=== PATIENT | male | born 1945 | race Caucasian/White ===

== ENCOUNTER 2025-03-09 13:53 | Emergency (ER) | payer OTHER, SELFPAY ==
[2025-03-09] VITALS (7 sets, daily range): BP systolic 48–130; BP diastolic 34–53
--- NOTE | 2025-03-09 14:10 | ED.GENMED ---
History of Present Illness
General
Chief Complaint: CODE
Source: ambulance crew
Exam Limitations: clinical condition
Time Seen by Provider: 03/09/25 13:59
History of Present Illness
History of Present Illness:
79-year-old male witnessed cardiac arrest at a nursing facility. CPR was done immediately. No pulse on medic arrival. They were doing CPR for over an hour with 5 rounds of epi. Code was called actually at the facility. However they noted he
appeared to have some agonal breathing and elected to restart CPR and ACLS. Patient was given a total of 7 epis. Eventually had a pulse 10 minutes prior to ER arrival. This was an hour and 20 minutes after starting the code. No spontaneous
neurologic function. Complicated medical history
Past History
Past History
ED Past Medical History: Other (Ascites/cirrhosis. Prostate CA.)
Phy Exam
Physical Exam
Physical Exam:
CODE EXAM:
VITAL SIGNS: Palpable pulse. Intubated.
GENERAL EXAM: Reasonable color
EYES: Pupils fixed. Small. No corneal reflexes
ENT: Patient intubated
NECK: No venous distention
RESPIRATORY: Equal breath sounds
CARDIAC: Distant but equal cardiac sounds. Abrasions on the chest wall
VASCULAR: Faint femoral pulses
ABDOMEN: Soft no masses. Paracentesis tube in place
GUAIAC: Not done
MUSCULOSKELETAL: Unable to evaluate strength
EXTREMITIES: Chronic edema
SKIN: No rash
PSYCH: Mood, affect unable to evaluate
Course
Orders/Labs/Results
Orders:
Orders
03/09/25 13:59
Cardiac Monitoring- Treatment ONCE
IV Insert/Care/Rem.- Treatment PRN
Pulse Ox/cont/shift [RESP] Urgent
Quantity: 1
03/09/25 14:00
EKG [Electrocardiogram (*1)] Urgent
Reason for Study: Chest Pain
Electrocardiogram (*1) Urgent
Reason for Study: Other
Other Reason for Exam: sepsis
EKG- Treatment ONCE
EKG- Treatment ONCE
Portable Chest Xray [CR Chest Portable - 1 View] Urgent
Comment:
Reason For Exam: tube placement
Reason Study Needs to be Portable: Unable to Transport
03/09/25 14:07
ABG [Arterial Blood Gas] Urgent
%Oxygen/Room Air: vent
03/09/25 14:11
Ventilator Initial Settings [RESP] Stat
Tidal Volume: 450
Rate: 18
FIO2: 100
PEEP: 5
03/09/25 14:14
CT Head W/o Iv Contrast Urgent
Comment:
Reason For Exam: Cardiac arrest/unresponsive
03/09/25 14:18
Complete Blood Count/With Diff Urgent
Comprehensive Metabolic Panel Urgent
PTT Urgent
Prothrombin Time Urgent
Troponin I Urgent
03/09/25 15:10
Morphine Sulfate 4 mg IV NOW STA
Abnormal Lab Results
03/09/25 03/09/25
14:07 14:18
RBC 2.33 L 10^6/uL
(4.70-6.10)
Hgb 7.4 L g/dL
(13.0-18.0)
Hct 23.5 L %
(39.0-52.0)
MCV 100.9 H fL
(80.0-94.0)
MCH 31.8 H pg
(27.0-31.0)
MCHC 31.5 L g/dL
(33.0-37.0)
RDW 19.3 H %
(11.5-14.5)
Plt Count 32 L 10^3/uL
(130-400)
MPV 11.9 H fL
(7.4-10.4)
Abs Immat Gran (auto) 0.3 H 10^3/uL
(0-0.05)
Absolute Neuts (auto) 8.1 H 10^3/uL
(1.4-6.5)
Absolute Lymphs (auto) 1.1 L 10^3/uL
(1.2-3.4)
Immature Gran % 2.6 H %
(0-0.5)
Neutrophils % 80.7 H %
(42.2-75.2)
Lymphocytes % 11.2 L %
(20.5-51.1)
PT 17.9 H Sec
(11.4-14.6)
APTT 61.0 H Sec
(23.4-35.0)
pH 7.10 L*
(7.35-7.45)
pCO2 55 H mmHg
(35-48)
pO2 143 H mmHg
(83-108)
HCO3 17.1 L mmol/L
(21-28)
ABG O2 Sat (Measured) 99.7 H %
(94-98)
Chloride 112 H mmol/L
(98-107)
Carbon Dioxide 18 L mmol/L
(22-30)
BUN 50 H mg/dl
(9-20)
Glucose 167 H mg/dl
(70-99)
Alkaline Phosphatase 186 H U/L
(38-126)
Troponin I 0.704 H* ng/ml
Total Protein 5.1 L g/dl
(6.3-8.2)
Albumin 2.3 L g/dl
(3.5-5.0)
03/09/25 14:18
03/09/25 14:18
Vital Signs
Initial and Last Documented VS:
Initial Vital Signs
Pulse Resp BP Pulse Ox
73 16 130/53 99
03/09/25 13:59 03/09/25 13:59 03/09/25 13:59 03/09/25 13:59
Last Documented Vital Signs
Pulse Resp BP Pulse Ox
75 17 130/53 99
03/09/25 14:02 03/09/25 14:02 03/09/25 13:59 03/09/25 13:59
*Radiology
Radiology exam reviewed: preliminary read by ED provider (ET tube 6 cm above the lou. Bilateral pleural effusions) and radiology read reviewed (No acute findings)
*Pulse Oximetry
Oxygen Mode of Delivery: Ventilator
Patient hypoxic: no (98)
*Nurse Paralegal Interpretation
Rate: normal
Interpretation: normal
Heart Rate: 66
Rhythm: sinus
*Critical Care Note
Total Time (30-74mins, 75-104mins- exclusive of procedures): 80
Update Note
Update Note:
Multiple discussions with family. Patient initially presented in a sinus rhythm and stable blood pressure after multiple multiple doses of epi. However he digressed in CT scan. Became more hypotensive bradycardic and went into cardiac arrest
again. CPR was restarted. I was talking to family at that time. They have elected for no [id number] with family. They are currently in seeing him
1505... Patient blood pressure is lowering again. Still remains with a faint pulse. Agonal type respiratory effort on top of the vent. Remains with no corneal reflexes. Again has had multiple discussions with the family. They do not want any
aggressive therapy and agree with extubation.
1523.... Patient 1523. Asystole. No spontaneous respirations. Family in the room.
Electronic certificate done
ED Attending Note
-
Portions of this chart may have been created with voice recognition software.� Occasional wrong word or��sound alike� substitutions may have occurred due to the inherent limitations of voice recognition software.
Discharge Plan
Departure
Patient Disposition:
Date of Disposition: 03/09/25
Time of Disposition: 15:24
Discharge Problem:
Cardiopulmonary arrest
Prescriptions:
No Action
pantoprazole 40 mg Tablet,Delayed Release (Dr/Ec)
40 mg PO DAILY
fludrocortisone 0.1 mg Tablet
0.1 mg PO DAILY
Referrals:
Vikas Jeffery MD [Family Provider]
Interventions
Interventions:
*Nursing Disposition Last Done: 03/09/25 16:40
Discharge Date and Time
Print Language: JAPANESE
[2025-03-09 14:25] LABS: B.E. -12.0 mmol/L; HCO3 17.1 mmol/L (21-28); O2 Saturation % 99.7 % (94-98); PCO2 55 mmHg (35-48); PO2 143 mmHg (83-108)
[2025-03-09 14:35] LABS: Hematocrit 23.5 % (39.0-52.0); Hemoglobin 7.4 g/dL (13.0-18.0); Mean Corp Hgb Conc. 31.5 g/dL (33.0-37.0); Mean Corpuscular Volume 100.9 fL (80.0-94.0); Nucleated Red Blood Cells % 0.5 % (-); Red Cell Dist. Width 19.3 % (11.5-14.5)
[2025-03-09 14:36] LABS: INR 1.43; PT 17.9 Sec (11.4-14.6)
[2025-03-09 14:38] LABS: APTT 61.0 Sec (23.4-35.0)
[2025-03-09 14:51] LABS: Platelet Count 32 10^3/uL (130-400)
[2025-03-09 14:58] LABS: Troponin I 0.704 ng/ml
[2025-03-09 15:00] LABS: ALT (SGPT) 29 U/L (0-50); AST (SGOT) 49 U/L (17-59); Albumin 2.3 g/dl (3.5-5.0); Alkaline Phosphatase 186 U/L (38-126); Blood Urea Nitrogen 50 mg/dl (9-20); Calcium 9.0 mg/dl (8.4-10.2); Carbon Dioxide 18 mmol/L (22-30); Chloride 112 mmol/L (98-107); Glucose 167 mg/dl (70-99); Potassium 4.5 mmol/L (3.5-5.1); Sodium 136 mmol/L (135-145); Total Protein 5.1 g/dl (6.3-8.2); eGFR > 60.00
[2025-03-09] MEDS: MORPHINE SULFATE 4 MG IV (15:20)
--- NOTE | 2025-03-09 15:58 | EDRN ---
1507 respiratory therapist extubates the patient and turns the vent off.
Family returns to the bedside to sit with patient.
1523 Dr. Dominguez at the bedside and prounounces the patient at 1523. Family at bedside and comfort provided to them.
== END 2025-03-09 15:23 | disposition expired ==
LOC: EMR 13:53
PROVIDERS: EMERGENCY PHYSICIAN Emergency Medicine; FAMILY PHYSICIAN Internal Medicine
DX: I46.9 Cardiac arrest, cause unspecified (principal); K74.60 Unspecified cirrhosis of liver
CPT/HCPCS: 99284; 31500; 96374; 70450; 71045; 80053; 82805; 84484; 85025; 85610; 85730; 92950; 93005; 94002